=== PATIENT | male | born 1985 | race Caucasian/White ===

== ENCOUNTER 2016-06-25 13:30 | Emergency (ER) | payer OTHER ==
--- NOTE | 2016-06-25 13:43 | ED Physician Documentation ---
Chest Pain - HISTORIAN Historian: patient - HPI Chief Complaint: Chest Pain Onset: minutes (30 minutes) Timing: sudden onset, still present Duration: constant Last known Well Date: 06/25/16 Last Known Well Time: 13:10 Last known Well Code/Unknown Code: Known Context: rest Severity: mild Quality: pressure (stabbing pain) Chest Pain Radiation: no radiation Chest Pain Signs/Symptoms: denies: nausea, vomiting, diaphoresis, dyspnea Worsened By: nothing Relieved By: nothing Further Comments: yes (Has been having a week history of some intermittent chest pain, no precipitating or modifying facotrs noted. Has had 5 episodes. Last for 15 minutes to 2 hours.) - ROS CONST: none - PAST HX VA risk factors: other (father with VA in early 50s). denies: hypertension, diabetes Type 2 DVT/PE Risk Factors: none Allergies/Adverse Reactions: Allergies Allergy/AdvReac Type Severity Reaction Status Date / Time No Known Allergies Allergy Unverified 08/27/12 17:01 Home Medications: Ambulatory Orders Medication Instructions Recorded Naproxen Sodium 440 mg PO BID #50 capsule 06/25/16 - SOCIAL HX Smoking History: non-smoker - FAMILY HX Family HX: CAD over 55 (father) - VITAL SIGNS Vital Signs: Vital Signs Temp Pulse Resp BP Pulse Ox 125/68 08/27/12 18:11 - REVIEWED ASSESSMENTS Nursing Assessment Reviewed: Yes Vitals Reviewed: Yes Progress - EKG/XRAY/CT EKG: NSR, nonspecific ST T wave chg Comments: normal ED Results Lab/Radiology - Radiology Radiology Impressions: chest x-ray: normal Chest Pain Physical Exam - EXAM General Appearance: alert, mild distress EENT: eye inspection normal, ENT inspection normal, pharynx normal. No: pharyngeal erythema Neck: nml inspection, no carotid bruit, JVD present. No: lymphadenopathy, subcutaneous emphysema Respiratory: no resp. distress, nml breath sounds. No: chest non-tender ( tenderness along the left costomanubrial boarder.), decreased air movement, wheezes, rales, rhonchi CVS: reg. rate & rhythm, no murmur, no gallop, no friction rub, pulses full, pulses equal Abdomen: soft, no organomegaly (abese), normal bowel sounds, no distension, non- tender Skin: warm/dry, normal color Extremities: No: edema Neuro: oriented X3, mood/affect nml, cognition normal Discharge Clincal Impression: Atypical chest pain Additional Instructions: Take Aleve 2 tablets twice a day with food. Use a warm compress to the chest wall area. If symptoms do not improve in the next week or two to see your primary care provider. Follow-up with your primary care provider about your elevated liver tests. Try to lose some weight. Home Medications: Ambulatory Orders Naproxen Sodium 440 mg PO BID #50 capsule 06/25/16 Condition: Stable Disposition: 01 HOME, SELF-CARE Decision to Admit: NO Date of Decison to Admit: 06/25/16 Decision Time: 15:20
[2016-06-25] MEDS ORDERED: ASPIRIN 81 MG CHEW TAB PO ONE (13:52)
[2016-06-25 14:47] LABS: BASOPHILS % 0.4 (0.0-1.5); EOSINOPHILS % 1.3 % (0.0-6.8); LYMPHOCYTES # 2.2 # k/uL (0.6-4.0); MONOCYTES # 0.4 # k/uL (0.0-0.9); MONOCYTES % 4.9 % (0.0-11.0)
[2016-06-25 14:55] LABS: eGFR (African) > 60; eGFR (Non-African) > 60
--- NOTE | 2016-06-25 15:04 | Diagnostic Imaging Report ---
[facility] [address] [facility].[address] 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 HISTORY: Left-sided chest pain. FINDINGS: The heart size is normal. The lungs are clear. There is no pleural effusion or pneumothorax identified. The osseous structures are normal. IMPRESSION: No acute pulmonary disease. Electronically signed on Jun 25, 2016 2:17:08 PM DEFENSIVE FIRE CONTROL SYSTEMS OPERATOR by: Quincy NORTH
[2016-06-25 15:59] VITALS: BP 129/89
== END 2016-06-25 15:37 | disposition home or self-care (01) ==
LOC: ED 13:30
DX: R07.89 Other chest pain (principal)
CPT/HCPCS: 71020; 80053; 84484; 85025; 85379; 99283; S1016

== ENCOUNTER 2017-05-25 20:19 | Emergency (ER) | payer OTHER ==
--- NOTE | 2017-05-25 21:17 | ED Physician Documentation ---
Lower Extremity Problem - HPI Stated Complaint: left knee pain Chief Complaint: Lower Extremity Problem Additional Information: LT KNEE PAIN AND LPOPS WHEN WALKS-NO MEDS ALSO HTN - NO MEDS Onset: days ago (WEEKS) Timing: worse Duration: intermittent episodes Recent Injury: No Severity: moderate Quality: pain Exacerbated By: walking, movement Relieved By: rest Associated Symptoms: denies: chest pain, shortness of breath - ROS CONST: no problems MS/SKIN/LYMPH: none, joint pain GI/: none NERUO/PSYCH: difficulty walking. denies: headache - PAST HX Past History: other (HTN) PE Risk Factors: hypertension Surgeries/Procedures: none Allergies/Adverse Reactions: Allergies Allergy/AdvReac Type Severity Reaction Status Date / Time No Known Allergies Allergy Verified 05/25/17 20:29 Home Medications: Ambulatory Orders Medication Instructions Recorded Lisinopril/Hydrochlorothiazide 1 each PO 1T #30 tablet 05/25/17 [Zestoretic] - SOCIAL HX Smoking History: non-smoker Alcohol Use: none Drug Use: none - FAMILY HX Family History: no significant history - VITAL SIGNS Vital Signs: Vital Signs Temp Pulse Resp BP Pulse Ox 98.5 F 117 H 18 166/96 117 H 05/25/17 20:20 05/25/17 20:20 05/25/17 20:20 05/25/17 20:20 05/25/17 20:20 - REVIEWED ASSESSMENTS Nursing Assessment Reviewed: Yes Vitals Reviewed: Yes ED Results Lab/Radiology - Orders Orders: ED Orders Category Date Time Status KNEE 3 VIEWS [RAD] Stat Exams 05/25/17 Taken Lower Extremity Problem - EXAM General Appearance: mild distress DTR - Lower Extremities: knee (L): 4+ (POPS GRINDS PAIN) RESPIRATORY: no resp distress, chest non-tender, breath sounds normal CVS: reg rate & rhythm, heart sounds normal JOINT: nml ROM, click/crepitus NEURO/PSYCH: oriented X3, mood/affect nml, cognition normal. No: weakness/ sensory loss SKIN: warm/dry, normal color. No: cyanosis, diaphoresis BACK: normal inspection Discharge Clincal Impression: LT KNEE PAIN, HTN (hypertension) Prescriptions: Lisinopril/Hydrochlorothiazide [Zestoretic] 1 each PO 1T #30 tablet Referrals: Amilcar Lockett MD [Primary Care Provider] - 2 Days Comments: IBU 600 TID RED TOLERATED IF NOT SEE ORTHOPEDICS Condition: Good Disposition: 01 HOME, SELF-CARE Decision to Admit: NO Decision Time: 21:21
[2017-05-25 21:33] VITALS: BP 162/76
--- NOTE | 2017-05-26 06:28 | Diagnostic Imaging Report ---
KALIA YOON [facility] [address] [facility].[address] 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 No fracture. No dislocation. No joint effusion. No soft tissue irregularity. Impression: No acute osseous abnormality. Electronically signed on May 25, 2017 8:48:09 PM CHECKERING MACHINE OPERATOR by: Adelso NORTH
== END 2017-05-25 21:25 | disposition home or self-care (01) ==
LOC: SUPCPDRO 20:19 → ED 20:19
DX: M25.562 Pain in left knee (principal); I10 Essential (primary) hypertension
CPT/HCPCS: 73562; 99283

== ENCOUNTER 2018-07-09 09:02 | Outpatient (CLI) | payer OTHER ==
[2018-07-09 09:44] LABS: eGFR (Non-African) > 60
== END 2018-07-09 09:04 ==
LOC: LAB 09:02
PROVIDERS: ATTEND Nurse Practitioner Family
DX: I10 Essential (primary) hypertension (principal)
CPT/HCPCS: 36415; 80053; 80061